=== PATIENT | male | born 1990 | race Two or more races ===

== ENCOUNTER 2024-07-19 16:16 | Emergency (ER) | payer MEDICAID, SELFPAY ==
[2024-07-19 16:29] VITALS: BP 119/81; PULSE 94; RESP 20; TEMP 37.1; O2SAT 99
--- NOTE | 2024-07-19 16:58 | XR_ITS ---
EXAMINATION: Ankle, right 3 views . Technique: Ankle AP, oblique, lateral 3 views Date and time of exam: July 19, 2024, 1715 hrs. Indications: Patient fell today with injury to the ankle, ankle pain. Findings: No fracture or dislocation. No foreign body Impression: No fracture or dislocation
--- NOTE | 2024-07-19 16:59 | PD.EDRME ---
Rapid Medical Screening Exam E Arrival date/time: 07/19/24 16:16 This is a 33-year-old male that comes in with complaints of right ankle injury that happened prior to arrival. Patient has some mild swelling to his right ankle. Patient denies any other trauma. I have greeted and performed a focused initial assessment of this patient. Initial appropriate labs ordered at this time. A comprehensive ED assessment and evaluation of the patient and analysis of all test and completion of medical decision making process will be conducted by additional ED provider. Chief Complaint: Extremity Injury, Lower Time Seen by Provider: 07/19/24 16:30 Vital signs: Vital Signs Temperature 98.8 F 07/19/24 16:29 Pulse Rate 94 07/19/24 16:29 Respiratory Rate 20 07/19/24 16:29 Blood Pressure 119/81 07/19/24 16:29 Pulse Oximetry (%) 99 07/19/24 16:29 Oxygen Delivery Method Room Air 07/19/24 16:29
--- NOTE | 2024-07-19 18:30 | EDNOTE_ITS ---
Lower Extremity Injury RME/HPI General Chief Complaint: Extremity Injury, Lower Stated Complaint: RIGHT ANKLE INJURY Time Seen by Provider: 07/19/24 16:30 Arrival date/time: 07/19/24 16:16 This is a 33-year-old male that comes in with complaints of right ankle injury that happened prior to arrival. Patient has some mild swelling to his right ankle. Patient denies any other trauma. RME / HPI RME / HPI Narrative: 07/19/24 16:16 This is a 33-year-old male that comes in with complaints of right ankle injury that happened prior to arrival. Patient has some mild swelling to his right ankle. Patient denies any other trauma. I have greeted and performed a focused initial assessment of this patient. Initial appropriate labs ordered at this time. A comprehensive ED assessment and evaluation of the patient and analysis of all test and completion of medical decision making process will be conducted by additional ED provider. Related Data Previous Rx's ?Medication ?Instructions ?Recorded ibuprofen 800 mg tablet 800 mg PO TID PRN pain #30 t abs 09/01/21 pantoprazole 40 mg tablet,delayed 40 mg PO QDAY #30 ta bs 12/04/22 release ibuprofen 800 mg tablet 800 mg PO TID PRN pain #30 t abs 03/21/23 ibuprofen 800 mg tablet 800 mg PO Q6H PRN pain #10 t abs 07/19/24 Allergies Allergy/AdvReac Type Severity Reaction Status Date / Time No Known Allergies Allergy Verified 07/19/24 16:19 Course Orders Category Date Time Status XR ankle comp RT min 3V Stat Exams 07/19/24 16:58 Completed Vital Signs Vital signs: Vital Signs Temperature 98.8 F 07/19/24 16:29 Pulse Rate 94 07/19/24 16:29 Respiratory Rate 20 07/19/24 16:29 Blood Pressure 119/81 07/19/24 16:29 Pulse Oximetry (%) 99 07/19/24 16:29 Oxygen Delivery Method Room Air 07/19/24 16:29 Discharge Plan Plan Patient Disposition: HOME (Self Care) Patient condition on transfer: Stable Prescriptions/Referrals Prescriptions/Med Rec: New ibuprofen 800 mg tablet 800 mg PO Q6H PRN (Reason: pain) Qty: 10 0RF No Action ibuprofen 800 mg tablet 800 mg PO TID PRN (Reason: pain) Qty: 30 0RF ibuprofen 800 mg tablet 800 mg PO TID PRN (Reason: pain) Qty: 30 0RF pantoprazole 40 mg tablet,delayed release (DR/EC) 40 mg PO QDAY Qty: 30 0RF Referrals: No Primary/Family,Physician [Primary Care Provider] - In 1 week Problem List Clinical Impression: Ankle contusion Patient/Caregiver Discharge Instructions Discharge Activity: activity as tolerated Education Materials: Bone Contusion Additional Instructions: Follow up with primary provider in 1-2 days. Come back to ED if symptoms change or worsen Print Language: Georgian Stand Alone Forms: Jasmin Award Info., Patient Portal Info Letter PA/BOATING SAFETY OFFICER Supervising Physician PA/BOATING SAFETY OFFICER Supervising Physician: michele
== END 2024-07-19 18:55 | disposition home or self-care (01) ==
PROVIDERS: Emergency Provider Family Medicine
DX: S90.01XA Contusion of right ankle, initial encounter (principal); X58.XXXA Exposure to other specified factors, initial encounter
CPT/HCPCS: 73610; 99283